=== PATIENT | female | born 1950 | race African-American/Black ===

== ENCOUNTER 2016-11-15 20:15 | Emergency (ER) | payer OTHER, MEDICAID ==
[~2016-11-15] VITALS: Ht 172.7 cm; Wt 100.0 kg
[~2016-11-15 20:15] MED LIST: ACYC400T2 PO; AMLO5TAB4 PO; ATOR20TA38 PO; LOSA1TAB20 PO; METF500T4 PO; OXYC-279 PO; PARO20TA58 PO; WARF2.5T PO
[2016-11-15 20:20] VITALS: Ht 172.7 cm; Wt 100.0 kg
[2016-11-15] MEDS ORDERED: SOD CHLORIDE 0.9% 1,000 ML IV STA ×2 (20:31→21:30)
[2016-11-15 21:08] LABS: ADD SCAN DIFF NO
--- NOTE | 2016-11-15 21:08 | RADRPT ---
PROCEDURE: Chest x-ray CLINICAL INDICATION: Chest pain TECHNIQUE: Chest single view COMPARISON: None FINDINGS: The heart is normal in size. The pulmonary vessels are normal in caliber. The lungs are clear. Th e costophrenic angles are sharp. The visualized bony thorax is unremarkable. IMPRESSION: No acute cardiopulmonary disease. RPTAT: HH .Anderson Blackwood MD, Date Time Electronically viewed and signed by .Anderson Blackwood MD, MD on 11/15/2016 21:08 .W/
[2016-11-15] MEDS ORDERED: SOD CHLORIDE 0.9% 250 ML IV ONE (21:30)
[2016-11-15] MEDS ORDERED: SERT50TA6 PO (21:34)
[2016-11-15] MEDS ORDERED: HYDR-906 PO (21:34)
[2016-11-15 21:38] LABS: INR 1.15; PROTIME 14.7 Sec (12.2-14.2); PT RATIO 1.1
[2016-11-15 21:39] LABS: PARTIAL THROMBOPLASTIN TIME 29.8 Sec (25.0-35.0)
[2016-11-15 21:47] LABS: POTASSIUM 3.4 mmol/L (3.5-5.1)
[2016-11-15 21:50] LABS: CREATININE 1.17 mg/dl (0.44-1.00)
[2016-11-15 21:51] LABS: CALCIUM 8.2 mg/dl (8.4-10.2)
[2016-11-15 21:52] LABS: ABNORMAL IP MESSAGE 1; MEAN CORPUSCULAR HEMOGLOBIN 25.8 pg (29.0-33.0); MEAN PLATELET VOLUME 10.8 fl (7.4-10.4); PLATELET COUNT 839 10^3/UL (140-415); RED BLOOD COUNT 2.21 10^6/ul (4.20-5.40); RED CELL DISTRIBUTION WIDTH 20.9 % (11.5-14.5)
[2016-11-15 21:56] LABS: HEMOGLOBIN 5.7 g/dl (12.0-16.0)
[2016-11-15 21:57] VITALS: TEMP 97.6
--- NOTE | 2016-11-15 22:13 | ERA ---
ER Documentation Chief Complaint Date/Time DATE: 11/15/16 TIME: 22:06 Chief Complaint rt side op site bleed s/p reconstructive sx, hx left mastectomy HPI This is a 66-year-old female who presents to the emergency room for evaluation of bleeding from incision site. This patient is postop from a left-sided mastectomy and a right-sided breast reduction done at [facility] in [place]. She states that today she noticed some fluid dripping down her abdomen and looked down and saw that it was bright red blood. The patient states that she noted bleeding from under the right breast. She does state that she has had a clot in the right breast. She states that she has a drain as well and denies being on any blood thinners. She denies any chest pain, shortness of breath, or palpitations associated with this. ROS All systems reviewed and are negative except as per history of present illness. Medications Home Meds Reported Medications Hydrocodone/Acetaminophen (Ransom 5-325 Tablet) 1 Each Tablet, 1 EACH PO PRN for FOR PAIN, TAB 11/15/16 Sertraline Hcl* (Sertraline Hcl*) 50 Mg Tablet, 50 MG PO TID, #30 TAB 11/15/16 Atorvastatin Calcium* (Atorvastatin Calcium*) 20 Mg Tablet, 20 MG PO QHS, #30 TAB 03/31/16 Metformin Hcl* (Metformin Hcl*) 500 Mg Tablet, 500 MG PO WITH BREAKFAST DINNE, # 30 TAB 03/31/16 Acyclovir* (Acyclovir*) 400 Mg Tablet, 400 MG PO DAILY, TAB 03/31/16 Amlodipine Besylate* (Norvasc*) 5 Mg Tablet, 5 MG PO DAILY, TAB 03/31/16 Discontinued Reported Medications Warfarin Sodium* (Coumadin*) 2.5 Mg Tablet, 2.5 MG PO DAILY, TAB 03/31/16 Losartan-Hydrochlorothiazide (Losartan-HCTZ) 100-25 Mg Tab, 1 TAB PO DAILY, TAB 03/31/16 Oxycodone HCl/Acetaminophen (Percocet 5-325 mg Tablet) 1 Each Tablet, 1 EACH PO EVERY 4-6 HOURS Y for PAIN, TAB 03/31/16 Paroxetine Hcl* (Paxil*) 20 Mg Tablet, 20 MG PO DAILY, TAB 03/31/16 Allergies Allergies: Coded Allergies: Penicillins (Unverified Allergy, Unknown, 11/15/16) sulfamethoxazole (Verified Allergy, Unknown, 11/15/16) trimethoprim (Verified Allergy, Unknown, 11/15/16) PMhx/Soc History of Surgery: Yes (LT MENISCUS, CHOLECYSTECTOMY) Anesthesia Reaction: No Hx Neurological Disorder: No Hx Respiratory Disorders: No Hx Cardiac Disorders: Yes (HTN) Hx Psychiatric Problems: No Hx Miscellaneous Medical Probl: Yes (DIABETES, HIGH CHOLESTEROL) Hx Alcohol Use: No Hx Substance Use: No Hx Tobacco Use: No Smoking Status: Never smoker Physical Exam Vitals Vital Signs Date Time Temp Pulse Resp B/P Pulse Ox O2 Delivery O2 Flow Rate FiO2 11/15/16 21:57 97.6 68 20 109/62 100 Room Air 11/15/16 20:20 98.9 71 18 103/52 100 Physical Exam INITIAL VITAL SIGNS: Reviewed by me GENERAL: The patient is well developed and appropriate for usual state of health in no apparent distress HEENT: Pupils equal, round, and reactive to light. EOMI. There is no scleral icterus. NECK: C-spine is soft and supple, there is no meningismus. There is no cervical lymphadenopathy. LUNGS: Clear to auscultation bilaterally. There are no rales, wheezes or rhonchi. HEART: Regular rate and rhythm, no murmurs, clicks, rubs or gallops. ABDOMEN: Soft, non-tender, non-distended. There are bowel sounds in all four quadrants. No rebound or guarding. EXTREMITIES: There is no peripheral cyanosis or edema. No focal swelling or erythema. NEUROLOGICAL: The patient moves all four extremities with 5/5 strength. Cranial nerves II - XII are intact. Normal gait. Alert and oriented SKIN: Incision site under left breast clean, dry and intact, pulsatile arterial bleeding noted under the mid right breast. Mild dehiscence of wound. Drain in place. HEME/LYMPHATIC: There is no evidence of excessive bruising or lymphedema. PSYCHIATRIC: The patient does not appear anxious or depressed. Result Diagram: 11/15/16213911/15/162139 Results 24 hrs Laboratory Tests Test 11/15/16 21:00 11/15/16 21:40 Prothrombin Time Pending Prothrombin Time Ratio 1.1 INR International Normalized Ratio 1.15 Activated Partial Thromboplast Time 29.8Sec White Blood Count 13.010^3/ul Red Blood Count 2.2110^6/ul Hemoglobin 5.7g/dl Hematocrit 19.0% Mean Corpuscular Volume 86.0fl Mean Corpuscular Hemoglobin 25.8pg Mean Corpuscular Hemoglobin Concent 30.0g/dl Red Cell Distribution Width 20.9% Platelet Count 16784^3/UL Mean Platelet Volume 10.8fl Sodium Level 142mmol/L Potassium Level 3.4mmol/L Chloride Level 108mmol/L Carbon Dioxide Level 23mmol/L Anion Gap 14 Blood Urea Nitrogen 13mg/dl Creatinine 1.17mg/dl Glucose Level 201mg/dl Calcium Level 8.2mg/dl Current Medications Medications (Trade) Dose Ordered Sig/Cristobal Route PRN Reason Start Time Stop Time Status Last Admin Dose Admin Sodium Chloride 1,000 ml @ 1,000 mls/hr Q1H STAT IV 11/15/16 20:31 11/15/16 21:30 DC 11/15/16 21:10 Sodium Chloride 1,000 ml @ 1,000 mls/hr Q1H STAT IV 11/15/16 21:30 11/15/16 22:29 11/15/16 21:47 Sodium Chloride (NS) 250 ml @ 0 mls/hr Q0M ONCE IV 11/15/16 21:30 11/15/16 21:32 DC Procedures/MDM EKG: Rate/Rhythm: [Normal Sinus Rhythm] QRS, ST, T-waves: [No changes consistent w/ acute ischemia] Impression: [No evidence of ischemia or arrhythmia] Chest X-ray 1V Interpreted by me: Soft Tissue: No acute abnormalities Bones: No acute abnormalities Mediastinum/Cardiac Silhouette/Lungs: [No acute abnormalities] This 66-year-old female presents to the emergency room for evaluation of postop bleeding. This patient states that she noticed some blood today. When I evaluated this patient I did know arterial bleeding from under the right breast. We immediately applied pressure to the area. I Did Pl., Surgicel over the bleeding site. Then a pressure bandage was placed around the patient with no leakage of blood from the cause or incision site after the placement of a pressure bandage. I did obtain lab work on this patient which showed a hemoglobin of 5.4. I did redraw specimen which did again show a hemoglobin of 5.4. This patient has no signs of hemodynamic compromise at this time. She is not tachypnea, not tachycardic, not hypotensive. I did give the patient 2 L of IV fluids. I have called [place] and spoken to . He is in agreement that this patient can be transferred at this time to [facility] where her surgery was performed. I have ordered 2 Units of packed red blood cells for this patient and we are awaiting transfer at this time. Case # [id number]. Critical Care: Time: 33 minutes Treatments/Evaluations: Close monitoring and treatment of unstable vital signs, cardiorespiratory, and neurologic status, while maintaining tight balance of fluid, respiratory, and cardiac interventions. Departure Diagnosis: Primary Impression: Severe anemia Additional Impressions: Postoperative bleeding from incision Renal insufficiency Condition: AMAURY Young DO November 15, 2016 22:13
[2016-11-15 22:28] LABS: BASOPHIL # 0.1 10^3/ul (0.0-0.1); LYMPHOCYTES # 1.2 10^3/ul (0.8-2.9); MONOCYTE # 0.7 10^3/ul (0.3-0.9); NEUTROPHIL # 9.8 10^3/ul (1.6-7.5)
[2016-11-15 22:32] LABS: BURR CELLS 3+; OVALOCYTES 2+; PLATELET ESTIMATE PLT APPEAR INCREASED; PLATELETS CLUMPS 1+; POLYCHROMASIA 1+
[2016-11-15] MEDS ORDERED: morphine 4 MG/ML VIAL IV STA (23:58)
[2016-11-16 00:21] VITALS: BP 98/68; PULSE 89; RESP 20
== END 2016-11-16 00:22 | disposition short-term general hospital (02) ==
LOC: E/R 20:15
DX: D64.9 Anemia, unspecified (principal); N28.9 Disorder of kidney and ureter, unspecified; I10 Essential (primary) hypertension; E11.9 Type 2 diabetes mellitus without complications; Z79.84 Long term (current) use of oral hypoglycemic drugs
CPT/HCPCS: 71010; 80048; 85025; 85610; 85730; 86850; 86900; 86901; 86920; 99291; J7030; J7040